=== PATIENT | female | born 1940 | race Caucasian/White ===

== ENCOUNTER 2016-08-13 09:02 | Day surgery (SDC) | payer MEDICARE, OTHER ==
[~2016-08-13] VITALS: Ht 167.6 cm; Wt 71.3 kg
[2016-08-13] VITALS (16 sets, daily range): BP systolic 104–157; BP diastolic 52–75; PULSE 60–91; RESP 12–19; O2SAT 92–100
[2016-08-13] MEDS: Clindamycin Inj 900 MG in IV Premix 1 EACH IV SCH ×2 (06:00→12:11)
[~2016-08-13 09:02] MED LIST: ACET-171 PO; ALBU18HF INH; AMLO5TAB2 PO; ASPI-973 PO; BECL8.7A6 IH; BIOT1000 PO; CHOL100045 PO; DIAZ2TAB2 PO; FURO-129 PO; LEVO100T6 PO; LISI-567 PO; Lactated Ringer's 1,000 ML IV SCH; METO25TA6 PO; OMEP20CA11 PO; OXYB10TA PO; PRAV20TA2 PO
[2016-08-13] MEDS ORDERED: Glycopyrrolate 0.2 MG/ML 1mL Inj ONE (09:03)
[2016-08-13] MEDS ORDERED: fentaNYL-PF 50 mCg/mL 2 mL Inj ONE (09:03)
[2016-08-13] MEDS ORDERED: Ondansetron 2 mg/mL 2 mL Inj ONE (09:03)
[2016-08-13] MEDS ORDERED: Neostigmine 1 mg/mL 10 mL Inj ONE (09:03)
[2016-08-13] MEDS ORDERED: Phenylephrine 10,000 mCg/mL Inj ONE (09:03)
[2016-08-13] MEDS ORDERED: Rocuronium 10 mg/mL 5 mL Inj ONE (09:03)
[2016-08-13] MEDS ORDERED: Dexamethasone 4 mg/mL Inj ONE (09:03)
[2016-08-13] MEDS ORDERED: HYDROmorphone 2 mg/mL Inj ONE (09:03)
[2016-08-13] MEDS ORDERED: Propofol 10,000 mCg/mL 20 mL Inj ONE (09:03)
[2016-08-13] MEDS ORDERED: Lactated Ringer's 1,000 ML IV ONE (09:21)
--- NOTE | 2016-08-13 11:15 | DRSVH ---
PROCEDURE: NM SENTINEL NODE INJECTION ONLY, LEFT BREAST RADIOPHARMACEUTICAL: 0.5 mCi Millipore filtered Tc-99m sulfur colloid. INDICATIONS: RIGHT BREAST CANCER, BILATERAL MASTECTOMY PROCEDURE: The indications, alternatives, benefits, risks, and complications of the procedure were explained to the patient. Written informed consent was obtained and placed in the chart. The area around the nip ple was prepped and draped in a sterile fashion. Tc-99m sulfur colloid was injected in the outer edg e of the areola in the left breast. No image was obtained. IMPRESSION: Administration of radiotracer into the left breast periareolar region for intra-operativ e sentinel lymph node localization. Dictated by: Constantine Valerio M.D. on 08/13/2016 at 11:13 Approved by: Constantine Valerio M.D. on 08/13/2016 at 11:14
--- NOTE | 2016-08-13 11:15 | DRSVH ---
PROCEDURE: NM SENTINEL NODE INJECTION ONLY, RIGHT BREAST RADIOPHARMACEUTICAL: 0.5 mCi Millipore filtered Tc-99m sulfur colloid. INDICATIONS: RIGHT BREAST CANCER PROCEDURE: The indications, alternatives, benefits, risks, and complications of the procedure were explained to the patient. Written informed consent was obtained and placed in the chart. The area around the nip ple was prepped and draped in a sterile fashion. Tc-99m sulfur colloid was injected in the outer edg e of the areola in the right breast. No image was obtained. IMPRESSION: Administration of radiotracer into the right breast periareolar region for intra-operati ve sentinel lymph node localization. Dictated by: Constantine Valerio M.D. on 08/13/2016 at 11:13 Approved by: Constantine Valerio M.D. on 08/13/2016 at 11:13
[2016-08-13] MEDS ORDERED: Bupivacaine 0.5%/EPI 50 mL Inj INFILTRATE ONE (12:48)
[2016-08-13] MEDS ORDERED: Lactated Ringer's 1,000 ML IV SCH (13:03)
[2016-08-13] MEDS ORDERED: Lactated Ringer's 500 ML IV PRN (13:03)
--- NOTE | 2016-08-13 13:03 | PCM.HPANE ---
Patient Data Surgeon Admitting Provider: Attending Provider:Alen Bunn MD Primary Care Physician:Wale Gr DO Other Provider:Aria Morales Anesthesia Reason for Visit Recurrent Right Breast Cancer RECURRENT RIGHT BREAST CANCER Ht/WT & BMI Height (Feet): 5 Height (Inches): 6.00 Weight (Kilograms): 71.3 Body Mass Index 25.00 Allergies Coded Allergies: Iodinated Contrast Media - IV Dye (Verified Allergy, Severe, Hives, 02/01/15 ) cefazolin (Verified Allergy, Severe, 02/01/15) codeine (Verified Allergy, Severe, 02/01/15) metoclopramide (Verified Allergy, Severe, 02/01/15) morphine (Verified Allergy, Severe, 02/01/15) oxycodone (Verified Allergy, Severe, 02/01/15) sulfamethoxazole (Verified Allergy, Severe, 02/01/15) trimethoprim (Verified Allergy, Severe, 02/01/15) Past Anesthesia History Anesthesia History: Denies:: Anesthesia Reactions, Difficult Intubation, Fam Anesthesia Reaction, Fam Malignant Hypertherm, Malignant Hyperthermia Diabetes History Hx Diabetes?: No MRSA MRSA: No Medications Blood Thinner: Aspirin Hypertension Medication: Yes Home Meds Incl Beta Prabha: Yes (Metoprolol 12.5mg) Date Beta Prabha Taken: Aug 13, 2016 Time Beta Prabha Taken: 0700 Reported Medications Metoprolol Tartrate 25 Mg Xleduw15.5 Mg PO BID 30 Days Ref 0 08/12/16 Amlodipine 5 Mg TabletUnknown Dose PO BID PRN For HYPERtension Ref 0 02/01/15 Cholecalciferol (Vitamin D3) (Vitamin D)1,000 Unit Capsule1,000 Unit PO DAILY # 1 BOTTLE Ref 0 12/29/14 Albuterol Sulfate (Ventolin HFA Inhaler)200 Puff/18 Gm Inhaler2 Puff INH Q4 PRN For Wheezing #1 INHALER Ref 0 12/29/14 Beclomethasone Dipropionate (Qvar)8.7 Gm Aer.w.adap2 Puffs IH BID 12/29/14 Pravastatin 20 Mg Laoqax09 Mg PO DAILY Ref 0 12/29/14 Oxybutynin Chloride ER 10 Mg Tab.er.2410 Mg PO DAILY Ref 0 12/29/14 Omeprazole 20 Mg Capsule.dr20 Mg PO DAILY Ref 0 12/29/14 Lisinopril 20 Mg Atldrp40 Mg PO DAILY 30 Days Ref 0 12/29/14 Levothyroxine 100 Mcg Ctkthz921 Mcg PO DAILY For Thyroid Replacement Ref 0 12/29/14 Furosemide (Lasix)20 Mg Vdqmdg29 Mg PO DAILY 30 Days Ref 0 12/29/14 Diazepam 2 Mg Tablet2 Mg PO TID PRN For Anxiety Ref 0 12/29/14 Biotin (Bandar Biotin)10,000 Mcg Capsule5,000 Mcg PO DAILY 12/29/14 Aspirin 81 Mg Yiibrd17 Mg PO DAILY Ref 0 12/29/14 Acetaminophen 500 Mg Tablet1,000 Mg PO Q6H PRN For Fever 12/29/14 Discontinued Reported Medications Prednisone (PredniSONE)50 Mg Avlnyu67 Mg PO DAILY Ref 0 07/26/16 History History of ENT Problems?: No HEENT History: Positive for:: Cataracts (Bilateral cataract removal) Sinus Problem (Sometimes) Denies:: Difficult Intubation Dysphagia Glaucoma Hearing Problem Hx of Heart Problems?: Yes Cardiovascular History: Positive for:: Cardiac Surgery (pacemaker) Edema (Sometimes) Hypertension Irregular Heartbeat (Current 2nd degree AVB) Pacemaker Denies:: AICD Atrial Fibrillation Chest Pain Congestive Heart Failure Heart Murmur Thrombophlebitis Valvular Heart Disease Hx of Respiratory Problem?: Yes Respiratory History: Positive for:: Asthma Pneumonia (remote hx of ) Use of Inhalers / NEBS Denies:: COPD Chest Surgery Cough Dyspnea Emphysema Hemoptysis Oxygen Administration Tuberculosis Use of C-PAP Machine Hx Neurologic Problems?: No Neurological History: Denies:: Alzheimer's Disease CVA Dementia Headaches Parkinson's Disease Seizures Hx of GI Problems?: No Gastrointestinal History: Positive for:: Gastroesphageal Reflux Heartburn (Takes Omeprazole) Denies:: Cirrhosis Diverticulitis Gall Bladder Disease Gastrointestinal Bleeding Hepatitis Hiatal Hernia Rectal Bleeding Other GI Pertinent History: 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 (hx right breast, recurrence current admission problem) Denies:: Currently Pelvic Inflammatory Skin History: Denies:: History Skin Disorders? Pressure Ulcers Hx Musculoskeletal Problems?: No Musculoskeletal History: Positive for:: Back Injury (Low to mid back when standing for long time) Joint Replacement (Partial right knee) Osteoarthritis Denies:: Fibromyalgia Musculoskeletal Trauma Myasthenia Gravis Rheumatoid Arthritis Systemic Lupus Hx of Psycho/Social Problems?: No Psycho Social History: Denies:: Anxiety Bipolar Disorder Hx Depression Suicide Attempt Hx Surgeries?: Yes (BONE MARROW TRANSPLANT, 2 BLADDER SURGERIES) Hx Any Other Health Problems?: Yes Other History: Positive for:: Cancer (leukemia- hx bone marrow, radiation ) Hospitalization Thyroid Disease (Hypothyrodism) Denies:: Endocrine Disease History Blood Transfusions: Positive for:: Accept Blood Products? Blood Transfusions Denies:: Blood Transfuse Reaction Hx Diabetes: No Hx Alcohol Use: NoHx Substance Use: No Smoking Status: Former Smoker Have You Smoked inLast 12 mo: No Stop/Bang S-Snoring: Do You Snore Loudly: No T-Tired: feel tired, fatigued: No O-Obsered: Observed not breath: No P-Blood Pressure: treated: Yes B- Body Mass Index > 35 kg/m2: No A- Age over 50: Yes N- Neck Large Circumference: No G- Gender Male: No SHIV Total Score: 2 Risk Assessment Category Category 1A: Patient has history of documented sleep apnea, and HAS NOT received any narcotic, sedative or anesthesia administration during this stay. Category 1B: Patient has history of documented sleep apnea, and HAS received any narcotic , sedative or anesthesia administration during this stay Category 2: Patient has SUSPECTED Obstructive Sleep Apnea, and HAS received any narcotic , sedative or anesthesia administration during this stay. Category 3: Patient has SUSPECTED Obstructive Sleep Apnea and HAS NOT received narcotic, sedative or anesthesia administration during this stay. Category 4: Outpatient in Procedural Areas with known sleep apnea or who screen positive for High Risk via the STOP/BANG questionnaire. Exam Exam Vital Signs Vital Signs Date Time Temp Pulse Resp B/P Pulse Ox O2 Delivery O2 Flow Rate FiO2 08/13/16 10:04 36.5 60 16 145/52 99 Room Air General Appearance: Alert, Oriented X3, Cooperative, No Acute Distress HEENT/AIRWAY: MP 2, Neck Movement (FROM), Mouth Opening (3 FBMO) Lungs: Clear to Auscultation, Normal Air Movement Heart: Other (pacemaker dependent, pacemaker reprogramed to DOO mode prior to surgery) Meds/Labs/Diagnostics Admission Meds Current Medications Lactated Ringer's (Lr) 1,000 ml @ ud STK-MED ONCE IV Last administered on 08/13t 09:21; Start 08/13/16 at 09:21; Stop 08/13/16 at 09:22; Status DC Plan Impression Patient chart reviewed, patient interviewed and anesthestic plan with risks, benefits, and alternatives discussed, and informed consent obtained. NPO Status: 08/12 at 1900 ASA Physical Status: ASA3 Severe Disease (pacemaker dependent) Anesthetic Plan: GA Bene/Risks/Altern/Consents: Yes HP Complete Prior to Induction: Yes Wale Bryant MD Aug 13, 2016 10:21
[2016-08-13] MEDS ORDERED: hydrALAZINE 20 mg/mL Inj IVPUSH PRN (13:05)
[2016-08-13] MEDS ORDERED: Labetalol 5 mg/mL 4 mL Inj IV PRN (13:05)
[2016-08-13] MEDS ORDERED: Atropine 0.4 mg/mL Inj IVPUSH PRN (13:05)
[2016-08-13] MEDS ORDERED: EPHEDrine Sulfate 50 mg/mL Inj IVPUSH PRN (13:05)
[2016-08-13] MEDS ORDERED: Phenylephrine 10,000 mCg/mL Inj IVPUSH PRN (13:05)
[2016-08-13] MEDS ORDERED: HYDROmorphone 1 mg/mL Inj IVPUSH PRN (13:05)
[2016-08-13] MEDS ORDERED: Ondansetron 2 mg/mL 2 mL Inj IVPUSH PRN ×2 (13:05→14:50)
[2016-08-13] MEDS ORDERED: fentaNYL-PF 50 mCg/mL 2 mL Inj IVPUSH PRN (13:05)
[2016-08-13] MEDS ORDERED: HYDROmorphone 0.5 mg/0.5 mL iSecure Syringe IVPUSH PRN (14:50)
[2016-08-13] MEDS ORDERED: HYDROmorphone PCA 0.2 mg/mL 30 mL Inj IV PRN (14:50)
[2016-08-13] MEDS ORDERED: Acetaminophen IV 1,000 MG in IV Premix 1 EACH IV PRN (14:50)
--- NOTE | 2016-08-13 15:05 | PCM.SURGOP ---
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 She also has a history of total body radiation for CML. She had an abnormal 6 mm density in the right breast on screening mammograms. A biopsy demonstrated moderately differentiated invasive ductal carcinoma, ER/MI positive, HER-2 negative. After discussion of risks and benefits, she agreed to proceed with bilateral mastectomy with bilateral axillary sentinel lymph node biopsy. Findings: On the right side, there was no identifiable sentinel lymph node, so a formal lymph node dissection was performed. On the left, there were 2 sentinel nodes. The first sentinel node had an ex vivo count of 172, the second sentinel node had an ex vivo count of 29, and the background count in the left axilla was 7. Procedure Details Preoperatively, the patient underwent bilateral periareolar radiotracer injection for sentinel lymph node identification. She was then brought to the operating room where she underwent smooth induction of general anesthesia. She was placed in the supine position with both arms out. Assessment of the axilla on both sides with the gamma probe revealed a radiotracer signal, so methylene blue was not used. She was prepped and draped in wide sterile fashion. A procedural pause was performed according to the SCOAP checklist, and all were found to be in agreement. Left simple mastectomy was performed first. An elliptical skin incision was made, encompassing the nipple areolar complex. Skin flaps were raised superiorly and inferiorly. Circumferential dissection was carried out with electrocautery as the skin subcutaneous tissue was elevated off the underlying breast capsule. Margins of dissection were the left clavicle and posterior to her left upper chest wall pacemaker pocket, which was not violated, the midline , the left inframammary crease, and the left anterior axillary line. The left breast was dissected off the underlying chest wall, and pectoralis fascia was resected en bloc. Prior to disconnecting the left axillary tail, a single lymph node was visible. This had a focal radiotracer uptake, so it was dissected free from the surrounding tissue with electrocautery. Ex vivo, it was a single lymph node with a gamma count of 172. The left breast was oriented with suture, and passed off the field for permanent pathology. The left axilla was reevaluated with the gamma probe, and there was a I'll but persistent radiotracer signal. Further dissection in the region of the prior node revealed another lymph node with radiotracer uptake which was dissected free from the surrounding tissues. Ex vivo, its gamma count was 29. Now the background count in the left axilla was 7. Both sentinel lymph nodes were labeled separately, and sent for permanent pathology. Hemostasis was adequate. There was a small amount of redundant skin at the medial aspect of her mastectomy incision, which was excised sharply and sent for pathology. A 19 Azeri round MARYJO drain was brought out through a separate incision laterally, and secured to the skin with a 2-0 nylon stitch. The skin incision was closed with interrupted deep dermal 3-0 Vicryl suture, and a running 4-0 Vicryl subcuticular stitch. Right simple mastectomy was performed next. Her prior upper outer quadrant incision was excised in the skin ellipse, which encompassed the nipple areolar complex as well. Skin flaps were raised superiorly and inferiorly. Circumferential dissection was carried out with electrocautery as the skin and subcutaneous tissue was elevated off the underlying breast capsule. Margins of dissection were the right clavicle, the midline, the right inframammary crease, and the right anterior axillary line. The right breast was dissected off the underlying chest wall, and pectoralis fascia was resected en bloc. Her prior radiated lumpectomy cavity was somewhat adherent to the chest wall, so that area was resected en bloc with a tiny amount of pectoralis muscle. The right axillary tail was disconnected, as there was no radiotracer signal in that area. The right breast was oriented with suture. Evaluation of the right axilla with the gamma probe revealed no radiotracer signal. The right breast was evaluated thoroughly, especially within the right axillary tail, and there was no evidence of a discrete radiotracer focus. There were no palpable lymph nodes within the axillary tail. The right breast was sent for permanent pathology. After a fairly extensive search, it was clear that there was no radiotracer signal in the axilla. A formal right axillary lymph node dissection was performed. The right axillary vein was skeletonized. The right thoracodorsal and long thoracic nerves were identified and preserved. There were some intercostal brachial nerves which were sacrificed during dissection. Once the nerves had been identified, all of the loose areolar node bearing tissue was swept inferiorly out of levels 1 and 2 of the axilla using the LigaSure for dissection. At completion of the dissection, the nerves were intact. The right axillary tissue was again evaluated with the gamma probe, and there was no radiotracer signal. There were no worrisome lymph nodes by palpation. That tissue was sent for permanent pathology labeled as right axillary dissection. Hemostasis was adequate. A 19 Azeri round MARYJO drain was brought out through a separate incision laterally, and secured to the skin with a 2-0 nylon stitch. The skin incision was closed with interrupted deep dermal 3-0 Vicryl suture, and a running 4-0 Vicryl subcuticular stitch. Steri-Strips and sterile dressings were applied to both incisions. At the end of the case all needle and sponge counts were correct 2. The patient was awakened from anesthesia without difficulty, and taken to the recovery room in satisfactory condition, having tolerated the procedure well. Complications There were no periprocedural complications identified. Surgical Specimen Removed: Yes Specimen sent to Pathology: Yes Surgical Specimen description: Left breast. Left axillary sentinel lymph node #1. Left axillary sentinel lymph node #2. Left medial skin. Right breast. Right axillary dissection. Anesthetic Plan: GA Grafts, Implants: None Output, Estimated Blood Loss: 30 Blood Administration during bansal: No Drains: MARYJO Drain #1, MARYJO Drain #2 Catheters: None copies to: Wale Gr DO; Baljit Smtih MD; Cody Holland MD, Joshua D MD Aug 13, 2016 15:04
--- NOTE | 2016-08-13 15:48 | PCM.ANEP1 ---
Post Anesthesia Phase 1 PACU Phase 1 Assessment Date of Service: Aug 13, 2016 Vital Signs Vital Signs Date Time Temp Pulse Resp B/P Pulse Ox O2 Delivery O2 Flow Rate FiO2 08/13/16 15:40 37.2 91 17 116/55 94 Nasal Cannula 3 08/13/16 15:35 91 14 112/56 100 Simple Mask 8 08/13/16 15:25 91 19 135/61 100 Simple Mask 8 08/13/16 15:20 91 18 130/75 99 Simple Mask 8 08/13/16 15:15 91 13 137/63 99 Simple Mask 8 08/13/16 15:10 91 16 147/62 98 Simple Mask 8 08/13/16 15:06 36.2 91 13 157/67 100 Simple Mask 8 08/13/16 10:04 36.5 60 16 145/52 99 Room Air Anesthetic Administered: GA Level of Alertness: Awake, talking CORDOBA's with Equal Strength: Yes Pain: No Nausea or Vomiting: No Oxygen Delivery: Simple Mask Lungs: Clear to Auscultation, Normal Air Movement Dermatome Level: Full Sensation Wale Bryant MD Aug 13, 2016 15:48
--- NOTE | 2016-08-13 15:48 | PCM.ANEP2 ---
Post Anesthesia Evaluation ASA/CMS Post Anesthesia VS in Patient's Normal Range?: Yes Resp Stable; Airway Patent?: Yes CV Function & Hydration Stable: Yes Mental Status Recovered?: Yes Pain control Satisfactory?: Yes N/V Control Satisfactory?: Yes Wale Bryant MD Aug 13, 2016 15:48
[2016-08-13] MEDS ORDERED: Lactated Ringer's 500 ML IV ONE (16:04)
[2016-08-13] MEDS ORDERED: Albuterol 2.5 mg/3 mL Inhalation Solution NEB PRN (17:00)
[2016-08-13] MEDS: Dextrose 5% Lactated Ringer's 1,000 ML IV SCH (17:18)
--- NOTE | 2016-08-13 17:49 | NUR ---
PostOp Pt arrived from PACU to OSC unit, 1014 at 1630. Arrived via gurney, slide board transfer over to bed. A&Ox3, VSS - on 6L oxymask, IV patent at Left Foot, Dressing to bilateral chest CDI, Bilateral JPs with sero-sang output, No c/o pain, Oriented to room and call light. 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 Stating not hungry at time of arrival - at 1730, stating ready to eat, jello and water provided to check for possibility nausea. Personal belongings brought down with pt. Pt comfortable at this time, call light in reach. Care continues.
[2016-08-14 00:10] VITALS: BP 146/72; PULSE 68; RESP 16; O2SAT 99
[2016-08-14 00:16] VITALS: RESP 16; O2SAT 99
--- NOTE | 2016-08-14 02:25 | NUR ---
Activity/Pain Patient up to BR with one person assist using FWW. Gait steady. Denies lightheadedness/dizziness. Complaints of nausea, with no emesis, upon returning to bed. Denies pain currently, but education provided on FEED BLENDER use. States understanding. Keeps rating pain 0-1/10 upon rounding. Using call light appropriately.
[2016-08-14 04:42] VITALS: BP 137/71; PULSE 68; RESP 16; O2SAT 99
[2016-08-14] MEDS: Dextrose 5% Lactated Ringer's 1,000 ML IV SCH (05:36)
[2016-08-14 05:37] VITALS: RESP 16; O2SAT 98
[2016-08-14] MEDS ORDERED: HYDROcodone-APAP 5-325 mg Tablet PO PRN (06:45)
--- NOTE | 2016-08-14 06:48 | PCM.DISURG ---
Surgical Discharge Instruction Date of Service Aug 14, 2016 Dates of Hospitalization Date of Hospital Admission Providers Admitting Physician: Primary Care Physician: Wale Gr DO Attending Physician: lAen Bunn MD Discharge Diagnosis Discharge Diagnosis recurrent right breast cancer Post Operative diagnosis Same Diet Discharge Diet: No restrictions Activity Discharge Activity-General: Activity as pain allows, Other (Gentle range of motion arm exercises per physical therapy) Dressing and Incisional Care Dressing Care: Allow Steri Stripes to fall off Hygiene: May shower Additional Instructions Additional Instructions Empty MARYJO drains and record output daily or more frequently as needed. Call the surgery clinic when output from one drain is less than 30mL in 24 hours for 2 consecutive days, and the drains can be removed at that time. Follow Up Plan Follow Up Plan with Dr. Bunn in 2 weeks. Call your provider for: Fever (over 101.5F), Discharge @ incision, pus discharge Alen Bunn MD Aug 14, 2016 06:47
[2016-08-14] MEDS ORDERED: HYDR-4003 PO (06:49)
--- NOTE | 2016-08-14 07:18 | PROG NOTE ---
[address] [address] PROGRESS NOTE PATIENT: MARK OLIVARES : 1940 MR#: [id number] ADMIT: 08/13/2016 JOB ID: [id number] DATE: 08/14/2016 SUBJECTIVE: The patient is seen in followup. She had a good night. She has very little pain. She had some mild nausea which has resolved this morning. She is voiding without difficulty. OBJECTIVE: Temperature 36.8, pulse 68, blood pressure 137/71, saturation 98% on 2 L oxy mask. General: She is resting in bed in no acute distress. Chest is clear. Heart: Regular rate and rhythm. No murmurs. Breasts: Her mastectomy incisions are well approximated with no evidence of hematoma. Skin flaps are well perfused. MARYJO drains are serosanguineous. LABORATORIES: Hematocrit is 30.8. ASSESSMENT/PLAN: A 76-year-old woman, postoperative day one, status post bilateral mastectomy for recurrent right breast cancer with left axillary sentinel lymph node biopsy and right axillary lymph node dissection. She is doing well clinically. She can be discharged today after MARYJO drain teaching has taken place, as well as some exercise education by physical therapy. She will follow up in surgery clinic when MARYJO drain output is less than 30 cc in 24 hours for drain removal and will see me in two weeks.
[2016-08-14 07:54] VITALS: PULSE 63; RESP 16; O2SAT 97
[2016-08-14 10:43] VITALS: BP 126/73; PULSE 74; RESP 16; O2SAT 93
--- NOTE | 2016-08-14 11:35 | NUR ---
Discharge Pt d/c'd home at approx 1130. IV removed intact. Reviewed d/c instructions w/ patient and her daughter. Showed daughter how to thread and drain MARYJO drain and she demonstrated on the 2nd drain. Hard copy of RX and all belongings w/ patient. She was taken to her daughter's POV via w/c. VSS
--- NOTE | 2016-08-14 12:45 | NUR ---
Social Work-screening/discharge: Data:EMR Reviewed. SW attempted to see pt for assessment, but was updated that pt has been discharged. PT has cleared pt for home no needs. no discharge needs identified. All updated and agreeable to plan. Assessment:Pt who is independent at baseline. Plan:Pt to discharge home today via POV.no discharge needs identified. All updated and agreeable to plan. [facility] [employer]
--- NOTE | 2016-08-14 14:51 | PCM.DC.SUR ---
Discharge Summary Date of Service: Aug 14, 2016 Date of Hospital Admission: August 13, 2016 Date of Operation(s): August 13, 2016 Date of Discharge: Aug 14, 2016 at 11:31 Diagnosis at Time of Discharge Primary Diagnosis: Recurrent right breast cancer Secondary diagnosis: HTN Dyslipidemia Pre-diabetes Anemia Hx Smoking Hypothyroidism Sick Sinus Syndrome S/P Pacemaker implantation Mass of the colon Benign positional vertigo Constipation Hypercalcemia Problems: Operation Bilateral simple mastectomy, left axillary sentinel lymph node biopsy, right axillary lymph node dissection Brief History and Physical: 76-year-old woman with a history of 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 She also has a history of total body radiation for CML. She had an abnormal 6 mm density in the right breast on screening mammograms. A biopsy demonstrated moderately differentiated invasive ductal carcinoma, ER/OK positive, HER-2 negative. After discussion of risks and benefits, she agreed to proceed with bilateral mastectomy with bilateral axillary sentinel lymph node biopsy. Consultants: NONE Hospital Course: Progress note per Dr. Zuniga's SUBJECTIVE: The patient is seen in followup. She had a good night. She has very little pain. She had some mild nausea which has resolved this morning. She is voiding without difficulty. OBJECTIVE: Temperature 36.8, pulse 68, blood pressure 137/71, saturation 98% on 2 L oxy mask. General: She is resting in bed in no acute distress. Chest is clear. Heart: Regular rate and rhythm. No murmurs. Breasts: Her mastectomy incisions are well approximated with no evidence of hematoma. Skin flaps are well perfused. MARYJO drains are serosanguineous. LABORATORIES: Hematocrit is 30.8. ASSESSMENT/PLAN: A 76-year-old woman, postoperative day one, status post bilateral mastectomy for recurrent right breast cancer with left axillary sentinel lymph node biopsy and right axillary lymph node dissection. She is doing well clinically. She can be discharged today after MARYJO drain teaching has taken place, as well as some exercise education by physical therapy. She will follow up in surgery clinic when MARYJO drain output is less than 30 cc in 24 hours for drain removal and will see me in two weeks. Pathology: Pending Disposition: Home Follow-up Plan: Dr. Bunn 2 weeks Acetaminophen (Acetaminophen) 500 Mg Tablet 1,000 MG PO Q6H PRN PRN For Fever ( Reported) Albuterol Sulfate (Ventolin HFA Inhaler) 200 Puff/18 Gm Inhaler 2 PUFF INH Q4 PRN PRN For Wheezing (Reported) Amlodipine (Amlodipine) 5 Mg Tablet Unknown Dose PO BID PRN PRN For HYPERtension (Reported) Aspirin (Aspirin) 81 Mg Tablet 81 MG PO DAILY (Reported) Beclomethasone Dipropionate (Qvar) 8.7 Gm Aer.w.adap 2 PUFFS IH BID (Reported) Biotin (Bandar Biotin) 10,000 Mcg Capsule 5,000 MCG PO DAILY (Reported) Cholecalciferol (Vitamin D3) (Vitamin D) 1,000 Unit Capsule 1,000 UNIT PO DAILY (Reported) Diazepam (Diazepam) 2 Mg Tablet 2 MG PO TID PRN PRN For Anxiety (Reported) Furosemide (Lasix) 20 Mg Tablet 10 MG PO DAILY (Reported) Hydrocodone-Acetaminophen 5-325 mg (Hydrocodone-Acetaminophen 5-325 mg) 1 Each Tablet 1 TABLET PO Q6 PRN PRN For Mild Pain Levothyroxine (Levothyroxine) 100 Mcg Tablet 100 MCG PO DAILY (Reported) Lisinopril (Lisinopril) 20 Mg Tablet 20 MG PO DAILY (Reported) Metoprolol Tartrate (Metoprolol Tartrate) 25 Mg Tablet 12.5 MG PO BID (Reported ) Omeprazole (Omeprazole) 20 Mg Capsule.dr 20 MG PO DAILY (Reported) Oxybutynin Chloride ER (Oxybutynin Chloride ER) 10 Mg Tab.er.24 10 MG PO DAILY ( Reported) Pravastatin (Pravastatin) 20 Mg Tablet 20 MG PO DAILY (Reported) copies to: Wale Gr DO; Baljit Smith MD; Cody Holland MD, Sherri L PA-C Aug 14, 2016 14:51
--- NOTE | 2016-08-16 16:13 | PATH ---
SURGICAL PATHOLOGY Attending Physician:Dalton Adorno CASE STATUS: Signed Out PATIENT NAME: MARK OLIVARES PID: [id number] : 1940 DATE COLLECTED:08/13/2016 00:00 SPECIMEN: 1: Breast, Simple Mastectomy (lymph nodes submitted separately) 2: [place] Lymph Node 3: [place] Lymph Node 4: Skin, biopsy 5: Breast, Simple Mastectomy (lymph nodes submitted separately) 6: Lymph Nodes, Regional Resection CLINICAL HISTORY: RECURRENT RIGHT BREAST CANCER 1). LEFT BREAST, SHORT SUPERIOR, LONG LATERAL, OUT @ 13:01 FIXATIVE @ 14:52 2). LEFT AXILLARY SENTINEL LYMPH NODE #1 OUT @ 13:17 FIXATIVE @ 13:19 3). LEFT AXILLARY SENTINEL LYMPH NODE #2 OUT @ 13:18 FIXATIVE @ 13:19 4). LEFT MEDIAL SKIN 5). RIGHT BREAST, SHORT SUPERIOR, LONG LATERAL, OUT @ 13:51 FIXATIVE @ 1452 6). RIGHT AXILLARY DISSECTION OUT @ 14:23 FIXATIVE @ 14:34 FINAL DIAGNOSIS: 1.LEFT SIMPLE MASTECTOMY SPECIMEN: NEGATIVE FOR MALIGNANCY AND SIGNIFICANT ATYPIA. 2. 3. LEFT SENTINEL LYMPH NODE #1 AND #2: BOTH LYMPH NODES NEGATIVE FOR MALIGNANCY. 4.LEFT MEDIAL SKIN: NEGATIVE FOR MALIGNANCY AND SIGNIFICANT ATYPIA. 5.RIGHT BREAST SIMPLE MASTECTOMY SPECIMEN: INVASIVE CARCINOMA OF THE BREAST, SEE CAP CANCER CASE SUMMARY BELOW. CAP CANCER CASE SUMMARY INVASIVE CARCINOMA OF THE BREAST: PROCEDURE: SIMPLE MASTECTOMY LYMPH NODE SAMPLING: AXILLARY DISSECTION (SEE PART 6) SPECIMEN LATERALITY: RIGHT TUMOR SITE: MEDIAL ASPECT TUMOR SIZE: LARGEST FOCUS 1.6 X 1.2 X 0.7 CM HISTOLOGIC TYPE: INFILTRATING DUCTAL CARCINOMA HISTOLOGIC GRADE: NITZA HISTOLOGIC SCORE 5 OF 9 Glandular/Tubular differentiation: Score 2 OF 3 Nuclear Pleomorphism: Score 2 OF 3 Mitotic Rate: Score 1 OF 3 Overall Grade: Grade 1 OF 3 (LOW GRADE) TUMOR FOCALITY: TWO SEPARATE FOCI DUCTAL CARCINOMA IN SITU: SEVERAL FOCI PRESENT Size (Extent) of DCIS: LARGEST FOCUS MEASURES 0.4 CM Architectural patterns: SOLID Nuclear grade: Grade INTERMEDIATE (2 OF 3) Necrosis: ABSENT MACROSCOPIC AND MICROSCOPIC EXTENT OF TUMOR SKIN: NEGATIVE FOR TUMOR NIPPLE: NEGATIVE FOR TUMOR SKELETAL MUSCLE: ABSENT MARGINS INVASIVE CARCINOMA: ALL MARGINS GREATER THAN 1.0 CM DUCTAL CARCINOMA IN SITU: ALL MARGINS GREATER THAN 1.0 CM LYMPH NODES Total number of lymph nodes examined: 9 (see part 6) Number of sentinel lymph nodes examined: 0 Lymph Node Involvement: ALL LYMPH NODES NEGATIVE FOR MALIGNANCY LYMPH-VASCULAR INVASION: NOT IDENTIFIED PATHOLOGIC STAGING: AJCC, 7th ed., 2010 PRIMARY TUMOR: pT1c REGIONAL LYMPH NODES: pN0 ANCILLARY STUDIES: Biomarkers Performed Previously on Case: Estrogen Receptor (ER) Status: POSITIVE Progesterone Receptor (PgR) Status: POSITIVE HER2 (by immunohistochemistry): NEGATIVE 6.RIGHT AXILLARY DISSECTION NINE LYMPH NODES, NEGATIVE FOR MALIGNANCY. ICD10 code C50.911 GROSS DESCRIPTION: The specimens are received in formalin, labeled with the patient's name, and sublabeled as the following: (1) left breast, short superior, long lateral; (2) left axillary sentinel lymph node #1; (3) left axillary sentinel lymph node #2; (4) left medial skin; (5) right breast, short superior, long lateral; (6) right axillary dissection. (1) The specimen consists of a left breast (3.6 cm AP, 14.2 cm SI, 19.2 cm ML) partially covered by an ellipse of skin (6.5 cm SI, 18.9 cm ML) with nipple/areola complex (2.7 x 2.7 cm). The axillary tail is absent. The specimen is oriented with 2 black sutures (short-superior, long-lateral). No localization wire is present. The breast tissue is fatty with no nodules, masses or lesions identified. The skin and nipple/areola complex are bay-white and unremarkable. Ink code: purple-anterior; yellow-posterior; black-superior; orange-inferior; green-medial; blue-lateral. Section code: (1A) nipple; (1B) skin; (1C, 1D) upper outer quadrant; (1E, 1F) lower outer quadrant; (1G, 1H) upper inner quadrant; (1I, 1J) lower inner quadrant. (2) The specimen consists of a lymph node (1.5 x 0.8 by 0.4 cm). Section code: (2A) one lymph node, serially sectioned. Specimen entirely submitted. (3) The specimen consists of a lymph node (1.2 x 0.8 x 0.5 cm). Section code: (3A) one lymph node, serially sectioned. Specimen entirely submitted. (4) The specimen consists of a piece of skin with subcutaneous tissue (5.2 x 3.0 x 0.5 cm). The skin is pale white smooth and shiny. The subcutaneous tissue is fatty and unremarkable. Ink code: black-resection margin. Section code: (4A) skin, serially sectioned, phlebotomy services representative. (5) The specimen consists of a right breast (4.3 cm AP, 18.7 cm SI, 17.0 cm ML) partially covered by an ellipse of skin (8.0 cm in SI, 17.0 cm ML) with nipple/areola complex (4.5 x 3.3 cm). The axillary tail is absent. The specimen is oriented with 2 black sutures (short-superior, long-lateral). No localization wire is present. The breast tissue is serially sectioned ML into 41 slices at the medial and lateral resection margins and slices #1 and #41 respectively. The breast tissue is fatty and contains 2 holland white solid firm irregular masses. Mass #1 (1.6 x 1.2 x 0.7 cm) within slices #11-#13 is 3.2 cm on the skin surface, 1.5 cm from the posterior, 11.8 cm from the superior, 0.7 cm from the inferior, 4.8 cm from the medial, and 10.7 cm on the lateral resection margins. Mass #2 (3.2 x 2.5 x 1.8 cm) within slices #13-#18 days 4.5 cm superior to mass #1, 1.7 cm on the skin surface, 0.1 cm from the posterior, 6.5 cm from the superior, 7.5 cm on the inferior, 5.5 cm on the medial, and 8.6 cm from the lateral resection margins. Slices #15-#17 contain a third possible mass (1.2 x 0.5 x 0.4 cm). No other nodules, masses or lesions are identified. The skin and nipple/areola complex are bay-white and slightly puckered which coincides of the underlying mass. Ink code: purple-anterior; yellow-posterior; black-superior; orange-inferior; green-medial; blue-lateral. Section code: (5A) nipple; (5B) skin; (5C) slice #10, tissue adjacent to mass #1, phlebotomy services representative; (5D) slice #11, mass #1, phlebotomy services representative; (5E) slice #12, mass #1, phlebotomy services representative; (5F-5H) slice #13, mass #1 and #2, phlebotomy services representative trisected and submitted IS; (5I-5J) slice #14, mass #2, phlebotomy services representative submitted AP; (5K) slice #15, mass #2, phlebotomy services representative; (5L) slice #15, phlebotomy services representative; (5M) slice #16, mass #2, phlebotomy services representative; (5N) slice #16, phlebotomy services representative; (5O) slice #17, mass #2, phlebotomy services representative; (5P) slice #18, mass #2, phlebotomy services representative; (5Q) slice #18, phlebotomy services representative; (5R) slice #19, tissue adjacent to mass #2, phlebotomy services representative. (6) The specimen consists of a piece of adipose tissue (10.5 x 8.5 x 1.5 cm) contain multiple possible lymph nodes (0.5 x 0.5 x 0.2 cm-1.2 x 1.0 x 0.5 cm). Section code: (6A, 6B) multiple intact lymph nodes; (6C-6E) one lymph node in each, bisected. Note: Approximate total fixation time in formalin-53 hours and 30 minutes using a collection date of August 13 2016 with times in fixative of 2565-5161. 08/15/16 JM MICRO DESCRIPTION: Sections from part 1 are of a simple mastectomy specimen from the left side. This is benign breast tissue with no evidence of malignancy or atypia. Sections from parts 2 and 3 are of left axillary lymph nodes labeled 1 and 2. Both are negative for malignancy. Sections from part 4 are of skin from the left medial aspect which is negative for tumor. Sections from part 5 are from a right simple mastectomy specimen within which there are two separate masses. Mass #1 measures 1.6 x 1.2 x 0.7 cm and is an infiltrating ductal carcinoma. The tumor is of intermediate nuclear grade with a low mitotic rate and intermediate tubular differentiation. This equates to a score of 5 out of 9 which equates to a low-grade tumor, grade 1 out of 3. There are foci of DCIS present which is of intermediate nuclear grade. The DCIS is of the solid type, and the largest focus measures 0.4 cm. All of the resection margins are widely free of both invasive carcinoma and DCIS. Also within part 5 was a second larger mass measuring 3.2 x 2.5 x 1.8 cm. The bulk of this mass is dense fibrous scar; however, there are areas of residual infiltrating duct carcinoma, the histologic pattern of which is essentially identical to mass #1. The largest area of infiltration here is 1.0 cm. Although the mass was grossly described being close to the posterior margin, this area is fibrous scar. The actual infiltrating ductal carcinoma has margins greater than 1.0 cm. Because the histologic appearance between mass #1 and mass #2 are essentially identical, they are considered to be two foci of the same tumor. Sections from part 6 consist of 9 separate lymph nodes, all of which are negative for malignancy. ICD-9 CODES: CPT CODES: 1: 75332 2: 05637 3: 94023 4: 75869 5: 22332 6: 24878 PROCEDURE/ADDENDA: Addendum SPI Addendum Diagnosis Test: Oncotype DX Breast Recurrence Score Recurrence score result 19 ER Score 9.7 Positive [place] Score 7.6 Positive HER2 Score 9.4 Negative Addendum Comment Please see [employer] report [id number] for complete details. Testing and interpretation done by [employer], [place], [place]. Testing requested by Dr. Holland, [facility]. Electronically Signed Out Chuck Vincent MD Electronically Signed Out Chuck Vincent MD [facility] [address], [place] [address] Technical component performed at [facility], [facility] [address], [place], [address]
== END 2016-08-14 11:31 | disposition home or self-care (01) ==
LOC: SAS 09:02 → OSC 16:50 → SAS 08-14 11:31
PROVIDERS: ATTEND Student in an Organized Health Care Education/Training Program
DX: C50.311 Malignant neoplasm of lower-inner quadrant of right female breast (principal); I10 Essential (primary) hypertension; I49.5 Sick sinus syndrome; E78.5 Hyperlipidemia, unspecified; H81.10 Benign paroxysmal vertigo, unspecified ear; E03.9 Hypothyroidism, unspecified; E83.52 Hypercalcemia; J45.909 Unspecified asthma, uncomplicated; K21.9 Gastro-esophageal reflux disease without esophagitis; Z87.891 Personal history of nicotine dependence; Z95.0 Presence of cardiac pacemaker; Z17.0 Estrogen receptor positive status [ER+]; Z92.3 Personal history of irradiation; Z79.82 Long term (current) use of aspirin
CPT/HCPCS: 19303; 36415; 38525; 38792; 80048; 85014; 88305; 88307; 94799; 97110; A9541; J1100; J1170; J2370; J2405; J2710; J3010; J7120

== ENCOUNTER 2017-01-02 18:09 | Inpatient (IN) | payer MEDICARE, OTHER ==
[~2017-01-02] VITALS: Ht 167.6 cm; Wt 64.9 kg
[~2017-01-02 18:09] MED LIST changes: +HYDR-4003 PO; -Lactated Ringer's 1,000 ML IV SCH
[2017-01-02] MEDS ORDERED: Ondansetron 2 mg/mL 2 mL Inj IVPUSH PRN (18:20)
[2017-01-02 18:24] VITALS: BP 134/77; PULSE 60; RESP 19; O2SAT 99
[2017-01-02] MEDS ORDERED: Piperacillin-Tazo 3.375 Gm Inj 3.375 GM in Dextrose 5% Minibag Plus 50 ML IV ONE (18:35)
[2017-01-02 18:51] LABS: BASOPHILS % (AUTO) 0.3 % (0-3); EOSINOPHILS % (AUTO) 3.7 % (0-5); MONOCYTES % (AUTO) 12.6 % (4-12); Mean Corpuscular Hemoglobin 31.5 pg (27.0-35.0); Mean Corpuscular Volume 92.9 fL (81-100); NEUTROPHILS % (AUTO) 63.1 % (40-74); Platelet Count 202 bil/L (150-400)
--- NOTE | 2017-01-02 18:57 | NUR ---
Pt. to floor Pt. escorted by wheelchair from ER waiting room to osc room 1025. She is steady on her feet, up to the bathroom, and denies complaints other than diarrhea and chronic urinary incontinence. Pt. oriented to room, call guerrero and fall precautions. Socks provided and IV placed in R foot as pt. states she has been instructed not to have arm bp's or iv's post double mastectomy. Foot IV is verified with Dr. Cormier as appropriate prior to placement.
[2017-01-02 19:15] LABS: Magnesium 1.7 mg/dL (1.6-2.6)
[2017-01-02] MEDS ORDERED: 0.9% Sodium Chloride 1,000 ML IV ONE (20:10)
--- NOTE | 2017-01-02 21:52 | PCM.HPMED ---
Subjective Date of Service Jan 02, 2017 Primary Provider: Admitting Physician: Zari Cormier MD Primary Care Physician: Mikal Suarez DO Attending Physician: Zari Cormier MD Chief Complaint: Right upper quadrant pain, nausea and diarrhea History of Present Illness: 76-year-old woman with hypertension, breast cancer status post bilateral mastectomy, chronic renal disease, CML, sick sinus syndrome status post pacemaker placement, was a direct admit to the hospital after presenting with evolving symptoms that eventually maximize in the right upper quadrant. She reports being in [place] last week and eating seafood last Friday, 6 days ago which resulted in her having nausea vomiting diarrhea, she was discharged from the emergency department in [place]. Friday she began to develop which he describes as a pressure in her right chest that descended into her abdomen and eventually wrapped around to her right back. She has not had much to eat but still gets the sensation that she has to defecate. She was seen at the residency clinic today for 7 out of 10 right upper abdominal pain, she was sent for ultrasound and labs which showed an 8 mm thick gallbladder wall and a 1.6 impacted stone in the gallbladder neck. She was started on Zosyn, and IV fluids. She denies any fever, chills, lightheadedness or dizziness, no current chest pain or palpitations, no numbness weakness tingling in arms hands feet or legs, no headaches or abrupt changes in vision. Vitals are stable on admission, white blood cells 11.9, BUN 46 creatinine 2.81 ( 1.16 two months ago), glucose 100, procalcitonin 0.26, liver enzymes are normal , magnesium 1.7. She is admitted for acute cholecystitis with cholelithiasis. Review of Systems: A comprehensive review of systems was conducted with the patient and found to be negative except as above in the history of presenting illness. Allergies Coded Allergies: Iodinated Contrast- Oral and IV Dye (Verified Allergy, Severe, Hives, ) sulfamethoxazole (Verified Allergy, Severe, 02/01/15) trimethoprim (Verified Allergy, Severe, 02/01/15) cefazolin (Verified Adverse Reaction, Severe, 08/14/16) VOMITING codeine (Verified Adverse Reaction, Severe, 08/14/16) VOMITING metoclopramide (Verified Adverse Reaction, Severe, 08/14/16) "WIRED" morphine (Verified Adverse Reaction, Severe, 08/14/16) VOMITING oxycodone (Verified Adverse Reaction, Severe, 08/14/16) VOMITING Home Medications TylerChriskaityautumn Alicia [id number] 1940 01/02/2017 02:20 PM 1/7 02/26/2012 acetaminophen 500 mg tablet take 2 tablet (1000MG) by oral route every 6 hours as needed 09/29/2016 amlodipine 5 mg tablet take 1 tablet by oral route every bedtime Aspir-81 81 mg tablet,delayed release take 1 tablet by oral route every day at night 02/26/2012 biotin 2,500 mcg tablet take 2 daily 11/17/2014 diazepam 2 mg tablet take 1 tablet (2MG) by oral route once daily as needed for anxiety. 12/15/2016 FUROSEMIDE 20 MG TABLET TAKE ONE-HALF TABLET BY MOUTH DAILY 10/29/2016 LEVOTHYROXINE 100 MCG TABLET TAKE ONE TABLET BY MOUTH DAILY FOR THYROID 03/11/2016 lisinopril 20 mg tablet take 1 tablet by oral route twice daily for high blood pressure. 08/12/2016 metoprolol tartrate 25 mg tablet take 0.5 tablet by oral route 2 times every day 02/26/2012 omeprazole 20 mg capsule,delayed release take 1 capsule (20MG) by oral route every day before a meal 06/12/2016 oxybutynin chloride ER 10 mg tablet,extended release 24 hr TAKE ONE TABLET BY MOUTH DAILY FOR BLADDER 09/02/2016 pravastatin 20 mg tablet TAKE 1 TABLET BY MOUTH EVERY EVENING 10/18/2015 prednisone 50 mg tablet take 1 tablet by oral route 13, 7, and 1 hour prior to receiving contrast at time of study 03/24/2014 QVAR 80 MCG ORAL INHALER INHALE 2 PUFFS BY MOUTH TWICE DAILY 04/29/2016 Ventolin HFA 90 mcg/actuation aerosol inhaler INHALE 2 PUFFS BY MOUTH EVERY 4 TO 6 HOURS NEEDED VITAMIN D3 PMH Anemia, arthritis, asthma, basal cell carcinoma of the eyelid, breast cancer recurrent, cataract, CML, dermatochalasis/ptosis, heart murmur, hyperlipidemia, hypertension, liver mass, myopia and a stigmatism, prediabetes, vertigo, chronic renal disease, sick sinus syndrome Surgical History Hysterectomy, knee replacement, pacemaker, most surgery, simple mastectomy, bone marrow transplant with whole-body radiation, blepharoplasty, bilateral mastectomy. Family History Mother: Alive 97 years old unknown medical problems. Father: Passed at the age of 68 secondary to pancreatic cancer. Sister from COPD at age of 66 Social History Hx Alcohol Use: No Hx Substance Use: No Smoking Status: Former Smoker Exam Vital Signs Vital Sign - Last Date Time Temp Pulse Resp B/P Pulse Ox O2 Delivery O2 Flow Rate FiO2 01/02/17 18:24 36.8 60 19 134/77 99 Room Air Exam General: Laying in bed, no apparent distress. HEENT: Normocephalic, atraumatic, EOMI grossly, neck is supple without lymphadenopathy, mucous membranes moist, conjunctivae are pink. Cardiovascular: Heart sounds are distant unable to appreciate murmur clicks or rubs, peripheral pulses 2/4 upper and lower extremities equal bilaterally. Pulmonary: Clear to auscultation bilaterally, no W/R/R. Abdominal: Abdomen is tender, greatest in right upper quadrant, negative rebound. Wills sign positive. Extremities: No edema appreciated. No tenderness, asymmetry. Neuro: Neurologically grossly intact, strength is equal bilaterally upper and lower extremities. MSK: Gait is normal, able to move extremities on their own volition, strength 5 out of 5 equal bilaterally to upper and lower extremities. Psych: A and O 4, appropriate mood and affect. Lab and Diagnostics Result Diagram: 01/02/17184401/02/171844 X-Rays, CTs and MRIs Abdominal ultrasound performed 01/02/2017 IMPRESSION: Acute cholecystitis appears present given the abnormal gallbladder wall thickening up to almost 8 mm, and pronounced tenderness during sonographic palpation of the gallbladder. Stones are present within the gallbladder lumen, and a calculus appears impacted at the gallbladder neck as noted above. Dictated by: Constantine Valerio M.D. 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 Acute cholecystitis with cholelithiasis, present on admission, active Positive Wills's, 8 mm gallbladder wall, 1.6 cm gallstone impacted seen on ultrasound. Pro-calcitonin 0.26 Zosyn every 12 hours IV IV fluids see below Surgery consulting, See Dr. Henderson's 01/02/17 note. Nothing by mouth after midnight except medications Acute on chronic kidney injury, present on admission, active Creatinine is nearly double what it was 2 months ago, patient says she has not been eating or drinking much the past few days, most likely prerenal in nature given the BUN to creatinine ratio. IV bolus 1 L now, 100 mL per hour normal saline to follow Patient only has a peripheral foot IV as a consequence of her bilateral mastectomies. Recheck with a.m. labs Acute diarrhea, present on admission, active Stool C. difficile toxin, ova and parasites, TSH ordered by primary care physician earlier today. Continue to monitor, IV fluids. Chronic stable problems Hyperlipidemia continue pravastatin Hypertension continue amlodipine, metoprolol, lisinopril Hypothyroidism continue levothyroxine Asthma continue Ventolin and Qvar when necessary for shortness of breath. Medication reconciliation yet to be performed. Patient admitted to inpatient status, anticipate a length of stay greater than 2 midnights, based on diagnosis, treatment, and anticipated risk of adverse events. CODE STATUS: Full code. Patient states she has a living will saying resuscitation okay to be performed, does not want to be placed on life support. GI prophylaxis not indicated, nothing by mouth after midnight Pain management: Numerous allergies including codeine, oxycodone. Tylenol as needed. DVT prophylaxis SCDs VTE Mechanical Devices: Intermittant Pneumatic CD Attending Statement The patient was seen and examined together with Dr. Tilley on 01/02 and I agree with the history, exam and plan as outlined in the note above. Sj Cota DO Jan 02, 2017 21:52 Anurag Earl MD Jan 02, 2017 22:48
--- NOTE | 2017-01-02 21:57 | CONS ---
[address] [address] CONSULTATION REPORT PATIENT: MARK OLIVARES : 1940 MR#: [id number] ADMIT: 01/02/2017 JOB ID: [id number] DATE OF SERVICE: 01/02/2017 REQUESTED BY: Zari Cormier MD HISTORY OF PRESENT ILLNESS: Mark is a 76-year-old woman whom I was asked to see for abdominal pain and cholecystitis. Four days ago, she was in [place]. She developed abdominal pain. She returned to her home in [place]. She felt nauseated but never vomited. The pain was in the epigastrium and went into her back. It persisted. She had an ultrasound done today. This demonstrated a thickened gallbladder wall containing stones. There was no adjacent pericholecystic fluid, but there was a positive sonographic Wills's sign. There appeared to be a 1.6 cm stone at the gallbladder neck. Her bile ducts were normal. She was admitted, and I was asked to see her in consultation. She has never had similar symptoms. She has no history of jaundice, acholic stools, or dark urine or pancreatitis. Her laboratory results this evening show a white count of 11,900, hematocrit of 35.4 and a platelet count of 202,000. Her liver function tests are normal. Lipase has not been ordered. Her creatinine is 2.8. She has had a previous eventual SANTY-BSO. She has also had two bladder operations. As far she knows, her appendix has not been removed. In 1986, she had a bone marrow transplant for CML. She had whksp-cevwxn-fmlv disease for eight years and then it resolved. PAST MEDICAL HISTORY: ILLNESSES: 1. CML treated with bone marrow transplant. 2. Ksixo-igtzzf-tuye for eight years following her bone marrow transplant. 3. Breast cancer with ultimate recurrence and ultimately treated with bilateral mastectomies. 4. Uterine fibroids. 5. Urinary incontinence status post Bczvvrey-Ijuichido-Gcvvij. 6. Hypertension. 7. Asthma. 8. Hyperlipidemia. MEDICATIONS AT HOME: 1. Albuterol inhaler. 2. Amlodipine 5 mg b.i.d. 3. Lisinopril 20 mg daily. 4. Metoprolol 12.5 mg b.i.d. 5. Pravastatin 20 mg daily. 6. Sudafed p.r.n. 7. Aspirin 81 mg daily. 8. Diazepam 2 mg t.i.d. p.r.n. 9. Hydrocodone acetaminophen 1 p.o. q.6 p.r.n. 10. Furosemide 10 mg daily. 11. Qvar 2 puffs b.i.d. 12. Omeprazole 20 mg daily. 13. L-thyroxine 100 mcg daily. 14. Oxybutynin 10 mg daily. 15. Biotin. 16. Cholecalciferol. ALLERGIES: 1. IODINATED CONTRAST. 2. ORAL AND IV DYE. 3. CEFAZOLIN. 4. CODEINE. 5. METOCLOPRAMIDE. 6. MORPHINE. 7. OXYCODONE. 8. SULFA METHOXAZOLE. 9. TRIMETHOPRIM. HABITS: Former smoker. Alcohol: Rare. SOCIAL HISTORY: . last fall from Alzheimer disease. FAMILY HISTORY: Negative for gallstones. REVIEW OF SYSTEMS: Otherwise negative. States pain is about the same as it has been for the last couple of days. PHYSICAL EXAMINATION: Very pleasant, alert, no distress. BMI 23, temperature 36.8, brachial blood pressure 134/75, pulse 60, respiratory rate 19, O2 sat in room air 99%. HEENT: PERRLA, EOMI. No scleral icterus. Neck: No appreciable masses. Lungs: Clear. Cardiac exam: Regular rhythm. Breasts: Status post bilateral mastectomy. Abdomen: Soft, but does complain of right upper quadrant tenderness but has no guarding and a negative Wills sign on physical exam. Skin: Nonjaundiced. No anterior abdominal wall rashes. Neurologic exam: Appropriate affect. No obvious cranial nerve deficits. Moves all extremities. Gait not tested. IMPRESSION: Cholecystitis. I discussed the natural history of her disease. I have recommended that if her pain persists which it most likely will, to proceed with a laparoscopic cholecystectomy and cholangiograms tomorrow. I discussed potential complications including but not limited to, bleeding, infection, hernia, bile leak and bile ductal injury. I informed her that members of my team will be seeing her tomorrow.
[2017-01-02] MEDS ORDERED: FUR20 PO (22:26)
[2017-01-02] MEDS ORDERED: OMEP20CA11 PO (22:26)
[2017-01-02] MEDS ORDERED: OXYB10TA PO (22:26)
[2017-01-02] MEDS ORDERED: AMLO5TAB2 PO (22:26)
[2017-01-02] MEDS ORDERED: ESTR0.3T2 PO (22:26)
[2017-01-02] MEDS ORDERED: METO25TA6 PO (22:26)
[2017-01-02] MEDS ORDERED: ACET500C49 PO (22:26)
[2017-01-02] MEDS ORDERED: PRAV20TA2 PO (22:26)
[2017-01-02] MEDS ORDERED: ASPI-973 PO (22:26)
[2017-01-02] MEDS ORDERED: BIOT5000 PO (22:26)
[2017-01-02] MEDS ORDERED: LISI-567 PO (22:26)
[2017-01-02] MEDS ORDERED: LEVO100T6 PO (22:26)
[2017-01-02] MEDS ORDERED: Albuterol 2.5 mg/3 mL Inhalation Solution NEB PRN (22:35)
[2017-01-02] MEDS ORDERED: HYDROcodone-APAP 5-325 mg Tablet PO PRN (23:00)
[2017-01-03] VITALS (15 sets, daily range): BP systolic 103–158; BP diastolic 47–80; PULSE 60–77; RESP 16–20; O2SAT 95–100
[2017-01-03] MEDS: 0.9% Sodium Chloride 1,000 ML IV SCH ×3 (00:22→15:50)
--- NOTE | 2017-01-03 03:14 | NUR ---
Bolus Patient tolerated inital dose of ABX with no noted SE. Received 1000L Bolus of NS also tolerated well. Denies intolerable pain. Able to utilize BSC, precautionary measure to protect IV site. Bed in low position, call light within reach, intentional rounding. Care Continues.
[2017-01-03 06:38] LABS: BASOPHILS % (AUTO) 0.5 % (0-3); EOSINOPHILS % (AUTO) 6.7 % (0-5); MONOCYTES % (AUTO) 10.4 % (4-12); Mean Corpuscular Hemoglobin 31.1 pg (27.0-35.0); Mean Corpuscular Volume 92.1 fL (81-100); NEUTROPHILS % (AUTO) 64.2 % (40-74); Platelet Count 174 bil/L (150-400)
[2017-01-03] MEDS: Pantoprazole 40 mg ER24 Tablet PO SCH (06:41)
[2017-01-03 06:58] LABS: Magnesium 1.6 mg/dL (1.6-2.6)
--- NOTE | 2017-01-03 07:33 | PCM.PNSURG ---
Subjective Date of Service: Jan 03, 2017 Visit Information: Reason for Visit Acute Cholecystitis Surgery/Surgery Date Post-Op Day # Date of Admission: Jan 02, 2017 at 18:09 Hospital Day # Subjective: Patient is resting comfortably in bed, she denies nausea, vomiting, fevers, sweats, chills. Postop General: No Complaints Gastrointestinal: No N/V Objective Objective Patient's abdomen is diffusely tender, soft, nondistended. White count has come down from 11.9-8.6 today. Patient is afebrile and vital signs are stable. Vital Sign- Last 8 Hours Date Time Temp Pulse Resp B/P Pulse Ox O2 Delivery O2 Flow Rate FiO2 01/03/17 05:08 77 01/03/17 04:45 36.5 62 18 129/68 96 Room Air Intake and Output- Last 8 Hour 01/03/17 Cumulative From/Thru 07:00 01/02/17 18:36 - 01/03/17 04:45 Intake Total 50 ml 50 ml Output Total 400 ml 400 ml Balance -350 ml -350 ml Intake Oral 50 ml 50 ml Output Urine Total 400 ml 400 ml # Bowel Movements 0 0 General: Alert, Oriented X3, Cooperative Neck: Full Range of Motion Lungs: Normal Air Movement Heart: Exam Unremarkable Abdomen: Soft, Non-distended Result Diagram: 01/03/17 0615 01/03/17 0615 Assessment & Plan Impression 76-year-old female with acute cholecystitis and cholelithiasis with a 1.6 cm stone that was first noted by CT in July -We will proceed with laparoscopic cholecystectomy today -Nothing by mouth status -Continue Zosyn Problems: Attending Statement: I have seen and examined Joseluis. I agree with the assessment and plan as outlined above. Risks of surgery were discussed, and informed consent was obtained. Following surgery, she will most likely stay here tonight and go home tomorrow. Nader Monzon DO Jan 03, 2017 07:33 Alen Bunn MD Jan 03, 2017 08:23
[2017-01-03] MEDS: Fluticasone 100 mCg Inhaler INHALATION SCH ×2 (07:56→19:42)
[2017-01-03] MEDS ORDERED: Piperacillin-Tazo 3.375 Gm Inj 3.375 GM in Dextrose 5% Minibag Plus 50 ML IV SCH (08:30)
[2017-01-03] MEDS: Tolterodine ER 2 mg ER24 Capsule PO SCH (08:30)
[2017-01-03] MEDS ORDERED: BIOTIN 5000 MCG PO SCH (08:30)
[2017-01-03] MEDS: Estrogens Conjugated 0.3 mg Tablet PO SCH (08:30)
--- NOTE | 2017-01-03 10:52 | NUR ---
Transfer To OR via stretcher at 10:55. Zosyn infusing. Consent signed in chart. Report given to
--- NOTE | 2017-01-03 11:11 | PCM.HPANE ---
Patient Data Date of Service: Jan 03, 2017 Surgeon Admitting Provider:Anurag Earl MD Attending Provider:Zari Cormier MD Primary Care Physician:Mikal Suarez DO Other Provider: Reason for Visit Acute Cholecystitis Ht/WT & BMI Height (Feet): 5 Height (Inches): 6.00 Weight (Kilograms): 64.900 Body Mass Index 22.99 Allergies Coded Allergies: Iodinated Contrast- Oral and IV Dye (Verified Allergy, Severe, Hives, ) sulfamethoxazole (Verified Allergy, Severe, 02/01/15) trimethoprim (Verified Allergy, Severe, 02/01/15) cefazolin (Verified Adverse Reaction, Severe, 08/14/16) VOMITING codeine (Verified Adverse Reaction, Severe, 08/14/16) VOMITING metoclopramide (Verified Adverse Reaction, Severe, 08/14/16) "WIRED" morphine (Verified Adverse Reaction, Severe, 08/14/16) VOMITING oxycodone (Verified Adverse Reaction, Severe, 08/14/16) VOMITING Past Anesthesia History Anesthesia History: Denies:: Anesthesia Reactions, Difficult Intubation, Fam Anesthesia Reaction, Fam Malignant Hypertherm, Malignant Hyperthermia Diabetes History Hx Diabetes?: No MRSA MRSA: No Medications Blood Thinner: Aspirin Hypertension Medication: Yes Home Meds Incl Beta Prabha: Yes Date Beta Prabha Taken: Jan 03, 2017 Time Beta Prabha Taken: 08:00 Active Scripts Hydrocodone-Acetaminophen 5-325 mg 1 Each Tablet1 Tablet PO Q6 PRN For Mild Pain #10 TABLET Prov:Alen Bunn MD 08/14/16 Reported Medications Acetaminophen 500 Mg Jrijecu147 Mg PO 01/02/17 Biotin 5,000 Mcg Tab.rapdis5,000 Mcg PO 01/02/17 Oxybutynin Chloride ER 10 Mg Tab.er.2410 Mg PO DAILY Ref 0 01/02/17 Levothyroxine 100 Mcg Agfvmq442 Mcg PO DAILY For Thyroid Replacement Ref 0 01/02/17 Omeprazole 20 Mg Capsule.dr20 Mg PO DAILY Ref 0 01/02/17 Furosemide 20 Mg Tab20 Mg PO DAILY 30 Days Ref 0 01/02/17 Lisinopril 20 Mg Cauadw99 Mg PO DAILY 30 Days Ref 0 01/02/17 Estrogens, Conjugated (Premarin)0.3 Mg Tablet0.3 Mg PO DAILY 30 Days Ref 0 01/02/17 Metoprolol Tartrate 25 Mg Wracpb68.5 Mg PO BID 30 Days Ref 0 01/02/17 Amlodipine 5 Mg Tablet5 Mg PO DAILY Ref 0 01/02/17 Aspirin 81 Mg Jiinhq08 Mg PO DAILY Ref 0 01/02/17 Pravastatin 20 Mg Dmnerp35 Mg PO DAILY Ref 0 01/02/17 Metoprolol Tartrate 25 Mg Zoqnlx00.5 Mg PO BID 30 Days Ref 0 08/12/16 Amlodipine 5 Mg TabletUnknown Dose PO BID PRN For HYPERtension Ref 0 02/01/15 Cholecalciferol (Vitamin D3) (Vitamin D)1,000 Unit Capsule1,000 Unit PO DAILY # 1 BOTTLE Ref 0 12/29/14 Albuterol Sulfate (Ventolin HFA Inhaler)200 Puff/18 Gm Inhaler2 Puff INH Q4 PRN For Wheezing #1 INHALER Ref 0 12/29/14 Beclomethasone Dipropionate (Qvar)8.7 Gm Aer.w.adap2 Puffs IH BID 12/29/14 Pravastatin 20 Mg Nqqvaj29 Mg PO DAILY Ref 0 12/29/14 Oxybutynin Chloride ER 10 Mg Tab.er.2410 Mg PO DAILY Ref 0 12/29/14 Omeprazole 20 Mg Capsule.dr20 Mg PO DAILY Ref 0 12/29/14 Lisinopril 20 Mg Scppbh08 Mg PO DAILY 30 Days Ref 0 12/29/14 Levothyroxine 100 Mcg Diuhpy333 Mcg PO DAILY For Thyroid Replacement Ref 0 12/29/14 Furosemide (Lasix)20 Mg Vsjgau16 Mg PO DAILY 30 Days Ref 0 12/29/14 Diazepam 2 Mg Tablet2 Mg PO TID PRN For Anxiety Ref 0 12/29/14 Biotin (Bandar Biotin)10,000 Mcg Capsule5,000 Mcg PO DAILY 12/29/14 Aspirin 81 Mg Hxuktu72 Mg PO DAILY Ref 0 12/29/14 Acetaminophen 500 Mg Tablet1,000 Mg PO Q6H PRN For Fever 12/29/14 History History of ENT Problems?: No HEENT History: Positive for:: Cataracts (Bilateral cataract removal) Sinus Problem (Sometimes) Denies:: Difficult Intubation Dysphagia Hearing Problem Denture Type: None Teeth Condition: Within Normal Limits Hx of Heart Problems?: Yes Cardiovascular History: Positive for:: Cardiac Surgery (pacemaker) Edema (Sometimes) Hypertension Irregular Heartbeat (Current 2nd degree AVB) Pacemaker Denies:: AICD Atrial Fibrillation Chest Pain Congestive Heart Failure Heart Murmur Thrombophlebitis Valvular Heart Disease Hx of Respiratory Problem?: Yes Respiratory History: Positive for:: Asthma Pneumonia (remote hx of ) Denies:: COPD Chest Surgery Cough Dyspnea Emphysema Hemoptysis Oxygen Administration Tuberculosis Use of C-PAP Machine Hx Neurologic Problems?: No Neurological History: Denies:: Alzheimer's Disease CVA Dementia Dizziness Headaches Parkinson's Disease Seizures Hx of GI Problems?: Yes Gastrointestinal History: Positive for:: Gall Bladder Disease Hx of Problems?: Yes Genitourinary History: Positive for:: Urinary Tract Infection (Takes prophylactic Cipro) Denies:: HX of Hemodialysis Kidney Stones HX of Peritoneal Dialysis: No Female Hx: Positive for:: Endometriosis Problems with Breasts? (hx right breast, recurrence current admission problem) Denies:: Currently Pelvic Inflammatory Skin History: Denies:: History Skin Disorders? Pressure Ulcers Hx Musculoskeletal Problems?: No Musculoskeletal History: Positive for:: Back Injury (Low to mid back when standing for long time) Joint Replacement (Partial right knee) Denies:: Musculoskeletal Trauma Systemic Lupus Hx of Psycho/Social Problems?: No Psycho Social History: Denies:: Anxiety Bipolar Disorder Hx Depression Suicide Attempt Hx Surgeries?: Yes (BONE MARROW TRANSPLANT, 2 BLADDER SURGERIES) Hx Any Other Health Problems?: Yes Other History: Positive for:: Cancer (leukemia- hx bone marrow, radiation ) Hospitalization Thyroid Disease (Hypothyrodism) Denies:: Endocrine Disease History Blood Transfusions: Positive for:: Blood Transfusions Denies:: Blood Transfuse Reaction Hx Diabetes: No Hx Alcohol Use: NoHx Substance Use: No Smoking Status: Former Smoker Have You Smoked inLast 12 mo: No Stop/Bang Treated for Sleep Apnea?: No Do You Have a CPAP Machine?: No Risk Assessment Category Category 1A: Patient has history of documented sleep apnea, and HAS NOT received any narcotic, sedative or anesthesia administration during this stay. Category 1B: Patient has history of documented sleep apnea, and HAS received any narcotic , sedative or anesthesia administration during this stay Category 2: Patient has SUSPECTED Obstructive Sleep Apnea, and HAS received any narcotic , sedative or anesthesia administration during this stay. Category 3: Patient has SUSPECTED Obstructive Sleep Apnea and HAS NOT received narcotic, sedative or anesthesia administration during this stay. Category 4: Outpatient in Procedural Areas with known sleep apnea or who screen positive for High Risk via the STOP/BANG questionnaire. Exam Exam Vital Signs Vital Signs Date Time Temp Pulse Resp B/P Pulse Ox O2 Delivery O2 Flow Rate FiO2 01/03/17 10:01 36.6 69 20 131/72 96 Room Air 01/03/17 08:45 70 01/03/17 05:08 77 01/03/17 04:45 36.5 62 18 129/68 96 Room Air General Appearance: Alert, Oriented X3, Cooperative HEENT/AIRWAY: MP 3, Neck Movement (Ok), Mouth Opening (Small mouth opening, short TM distance) Lungs: Normal Air Movement Heart: Exam Unremarkable, Regular Rate/Rhythm, Normal S1, Normal S2 Meds/Labs/Diagnostics Admission Meds Current Medications Piperacillin Sod/ Tazobactam Sod 3.375 gm/Dextrose/ Water 50 ml @ 12.5 mls/hr Q12 IV Last administered on 01/03/17 07:57; Start 01/03/17 at 08:30 Piperacillin Sod/ Tazobactam Sod 3.375 gm/Dextrose/ Water 50 ml @ 100 mls/hr ONCE ONCE IV Last administered on 01/02/17 20:19; Start 01/02/17 at 18:35; Stop 01/02/17 at 19:04; Status DC Sodium Chloride 1,000 ml @ 0 mls/hr Q0M ONCE IV Last administered on 20:19; Start 01/02/17 at 20:10; Stop 01/02/17 at 20:20; Status DC Sodium Chloride (Normal Saline) 1,000 ml @ 100 mls/hr Q10H IV Last administered on 01/03/17 00:22; Start 01/02/17 at 20:10 Fluticasone Propionate (Flovent 100 mCg Diskus) 1 puff BID INHALATION Last administered on 01/03/17 07:56; Start 01/03/17 at 08:30 Levothyroxine Sodium (Synthroid) 100 mcg DAILY PO Last administered on 07:58; Start 01/03/17 at 08:30 Metoprolol Tartrate (Lopressor) 12.5 mg BID PO Last administered on 01/03/17 07:58; Start 01/03/17 at 08:30 Pantoprazole (Protonix) 40 mg 0630 PO Last administered on 01/03/17t 06:41; Start 01/03/17 at 06:30 Labs Test 01/02/17 18:45 01/03/17 06:15 Procalcitonin 0.26ng/mL (0.00-0.08) White Blood Count 8.6th/mm3 (3.8-10.1) Red Blood Count 3.67mil/mm3 (3.90-5.20) Hemoglobin 11.4g/dL (12.0-15.6) Hematocrit 33.8% (35.0-46.0) Mean Corpuscular Volume 92.1fL (81-100) Mean Corpuscular Hemoglobin 31.1pg (27.0-35.0) Mean Corpuscular Hemoglobin Concent 33.7% (32.0-37.0) Red Cell Distribution Width 13.4% (12.3-15.4) Platelet Count 174bil/L (150-400) Neutrophils (%) (Auto) 64.2% (40-74) Lymphocytes (%) (Auto) 18.0% (14-46) Monocytes (%) (Auto) 10.4% (4-12) Eosinophils (%) (Auto) 6.7% (0-5) Basophils (%) (Auto) 0.5% (0-3) Sodium Level 140mEq/L (134-144) Potassium Level 4.1mEq/L (3.5-5.2) Chloride Level 106mEq/L (97-108) Carbon Dioxide Level 20mmol/L (18-29) Blood Urea Nitrogen 36mg/dL (8-27) Creatinine 1.64mg/dL (0.57-1.00) Estimat Glomerular Filtration Rate 44mL/min (>59) Glucose Level 111mg/dL (60-99) Calcium Level 8.5mg/dL (8.5-10.1) Magnesium Level 1.6mg/dL (1.6-2.6) Total Bilirubin 0.4mg/dL (0.0-1.2) Aspartate Amino Transf (AST/SGOT) 9U/L (0-50) Alanine Aminotransferase (ALT/SGPT) 8U/L (0-32) Alkaline Phosphatase 46U/L (25-165) Total Protein 5.6g/dL (6.4-8.4) Albumin 3.6g/dL (3.4-5.0) Lipase 12U/L (13-60) Plan Impression Patient chart reviewed, patient interviewed and anesthestic plan with risks, benefits, and alternatives discussed, and informed consent obtained. NPO per Anesth. Guidelines: Yes ASA Physical Status: ASA3 Severe Disease Anesthetic Support Modalities: Eure Scope Anesthetic Plan: GA Bene/Risks/Altern/Consents: Yes HP Complete Prior to Induction: Yes Roberto Haley MD Jan 03, 2017 10:52
[2017-01-03] MEDS ORDERED: Bupivacaine-MPF 0.5% 30 mL Inj INFILTRATE ONE (11:25)
[2017-01-03] MEDS ORDERED: Lactated Ringer's 1,000 ML IV ONE (11:25)
--- NOTE | 2017-01-03 12:28 | PCM.PNMED ---
Subjective Date of Service Jan 03, 2017 Subjective pt was mildly symptomatic, c/o diffuse abd pain, more on RUQ kept in NPO, awaits for surgery this AM denied n/v Exam Vital Signs Vital Sign - Last Date Time Temp Pulse Resp B/P Pulse Ox O2 Delivery O2 Flow Rate FiO2 01/03/17 10:01 36.6 69 20 131/72 96 Room Air Intake and Output 01/02/17 01/02/17 01/03/17 Cumulative From/Thru 15:00 23:00 07:00 01/02/17 18:36 - 01/03/17 04:45 Intake Total 50 ml 50 ml Output Total 400 ml 400 ml Balance -350 ml -350 ml Intake Oral 50 ml 50 ml Output Urine Total 400 ml 400 ml # Bowel Movements 0 0 IVs and Medications Medications Reviewed: Medications were reviewed in detail Lab and Diagnostics Result Diagram: 01/03/1715 01/03/17 0615 X-Rays, CTs and MRIs Abdominal ultrasound performed 01/02/2017 IMPRESSION: Acute cholecystitis appears present given the abnormal gallbladder wall thickening up to almost 8 mm, and pronounced tenderness during sonographic palpation of the gallbladder. Stones are present within the gallbladder lumen, and a calculus appears impacted at the gallbladder neck as noted above. Dictated by: Constantine Valerio M.D. 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 acute, active Acute cholecystitis with cholelithiasis, present on admission, active, Positive Wills's, 8 mm gallbladder wall, 1.6 cm gallstone impacted seen on ultrasound. Pro-calcitonin 0.26. pt was startedZosyn every 12 hours IV awaits surgery planned today. IV fluids see below resume diet after surgery dvt ppx, pain control per surgery team Acute on chronic kidney injury, present on admission, active, Creatinine is nearly double what it was 2 months ago, patient says she has not been eating or drinking much the past few days, most likely prerenal in nature given the BUN to creatinine ratio. -renal function greatly improved with IVF -s/p IV bolus 1 L 100 mL per hour normal saline, continue one more day and stop. Acute diarrhea, present on admission, active awaits Stool C. difficile toxin, ova and parasites, TSH Continue to monitor, IV fluids. Chronic stable problems Hyperlipidemia continue pravastatin Hypertension continue amlodipine, metoprolol, lisinopril Hypothyroidism continue levothyroxine Asthma continue Ventolin and Qvar when necessary for shortness of breath. dispo: likely 1-2days if no post-op Cx observed CODE STATUS: Full code. Patient states she has a living will saying resuscitation okay to be performed, does not want to be placed on life support. GI prophylaxis not indicated, nothing by mouth after midnight Pain management: Numerous allergies including codeine, oxycodone. Tylenol as needed. DVT prophylaxis SCDs VTE Mechanical Devices: Intermittant Pneumatic CD Time spent 35min Zari Cormier MD Jan 03, 2017 12:28
--- NOTE | 2017-01-03 12:48 | PCM.SURGOP ---
Surgical Operative Report Date of Service: Jan 03, 2017 Pre Operative Diagnosis Acute calculus cholecystitis Post Operative Diagnosis Same Procedure: Laparoscopic cholecystectomy Surgeon and Chaperone: Surgeon: Alen Bunn MD Assistants: Constantine Cai PA-C Indication for Procedure 76-year-old woman who presented to the hospital with 4 days of abdominal pain and nausea. She had a mildly elevated white blood cell count at 11.9. Liver function tests were normal. She was diffusely tender. She had an ultrasound which demonstrated a large gallstone impacted in the neck of the gallbladder with a thickened gallbladder wall. After discussion of risks and benefits, she agreed to proceed with laparoscopic cholecystectomy. Because of her severe oral contrast allergy, plans were only to do a cholangiogram if absolutely necessary to define her anatomy. Findings: The gallbladder was acutely inflamed with hydrops. The critical view was obtained with a normal appearing cystic duct. Procedure Details After smooth induction of general endotracheal anesthesia, the patient was placed in the supine position with the right arm tucked. A procedural pause was performed according to the SCOAP checklist, and all were found to be in agreement. A curvilinear infraumbilical incision was made. Dissection was carried down with electrocautery until the midline fascia was incised vertically, and the peritoneal cavity entered without difficulty. Pneumoperitoneum was established. Inspection revealed some inflammatory adhesions to the fundus of the gallbladder and severe inflammation with distention of the gallbladder. 3 additional ports were placed under direct visualization. One was placed in the midline epigastrium, and 2 in the right subcostal region. Adhesions were taken down from the gallbladder fundus with electrocautery. The fundus of the gallbladder was then grasped and retracted cephalad, and during the retraction, the gallbladder was perforated and decompressed hydrops fluid. The infundibulum of the gallbladder was exposed and grasped. The peritoneum was incised. The cystic artery was doubly clipped and divided. The critical view was obtained using the infundibular technique. A clip was placed on the gallbladder side of the cystic duct, 2 clips were placed on the common bile duct side, and the duct was divided with scissors. The remainder of the gallbladder was dissected out of the gallbladder fossa with electrocautery. The gallbladder was placed into an Endo Catch bag and removed from the umbilical port site. It was passed off the field and sent for permanent pathology. The gallbladder fossa was inspected and irrigated. Hemostasis was adequate, and there was no bile leak. The ports were removed under direct visualization and pneumoperitoneum was released. The fascia of the umbilical port site was closed using an 0 Vicryl suture in a [id number]. The skin incisions were closed using running 4-0 Monocryl subcuticular stitches. Steri- Strips and sterile dressings were applied. At the end of the case all needle and sponge counts were correct 2. The patient was awakened from anesthesia without difficulty, and taken to the recovery room in satisfactory condition, having tolerated the procedure well. Complications There were no periprocedural complications identified. Surgical Specimen Removed: Yes Specimen sent to Pathology: Yes Surgical Specimen description: Gallbladder Anesthetic Plan: GA Grafts, Implants: None Output, Estimated Blood Loss: 50 Blood Administration during bansal: No Drains: None Catheters: None copies to: Mikal Suarez Joshua D MD Jan 03, 2017 12:44
[2017-01-03] MEDS ORDERED: Lactated Ringer's 1,000 ML IV SCH (12:59)
[2017-01-03] MEDS ORDERED: Lactated Ringer's 500 ML IV PRN (12:59)
[2017-01-03] MEDS ORDERED: Albuterol 2.5 mg/3 mL Inhalation Solution NEB PRN (13:00)
[2017-01-03] MEDS ORDERED: HYDROmorphone 1 mg/mL Inj IVPUSH PRN (13:00)
[2017-01-03] MEDS ORDERED: Ondansetron 2 mg/mL 2 mL Inj IVPUSH PRN (13:00)
[2017-01-03] MEDS ORDERED: Phenylephrine 10,000 mCg/mL Inj IVPUSH PRN (13:00)
[2017-01-03] MEDS ORDERED: fentaNYL-PF 50 mCg/mL 2 mL Inj IVPUSH PRN (13:00)
[2017-01-03] MEDS ORDERED: EPHEDrine Sulfate 50 mg/mL Inj IVPUSH PRN (13:00)
[2017-01-03] MEDS ORDERED: 0.9% Sodium Chloride 250 ML ONE (14:25)
--- NOTE | 2017-01-03 14:51 | NUR ---
Post op Returned from PACU via stretcher at 13:55. Report received from Jayleen. Pt alert and oriented. RA. Lap sites CDI. VSS. Denies pain and nausea. Transferred self to bed and immediately up to BSC with 1 person assist and voided. Steady on feet. Tolerates water, talking about steak for dinner. Daughter in room.
--- NOTE | 2017-01-03 17:10 | NUR ---
Social Work: Initial Assessment/Multi-Disciplinary Rounds D: EMR reviewed. Please see Initial Assessment linked to this note for more information. Pt is a 76 y/o female admitted [place] for acute cholecystitis per H&P. Pt does not have a readmit risk score assigned. Pt's insurance is Medicare and [facility] [employer] Supplemental. PCP is Mikal Kennedy DO. KELLEY met with pt at bedside to conduct initial assessment. Pt was alert and oriented x3. SW explained role and wrote phone number on white board. SW provided "Your Discharge Planning Checklist" and encouraged pt to contact SW for any discharge planning questions. Pt discussed in multidisciplinary rounds. Per MD, pt anticipate to go to OR today and discharge in 2-3 days pending surgery. No SW needs identified, no MD orders received. SW will continue to follow for recommendations after surgery. Pt lives at home alone at the [facility]. Pt is independent with all ADLs. Pt owns and uses a FWW for ambulation. Pt also has [employer] at home and [employer] in her car (GPS). SW discussed discharge plan and asked if pt had any concerns regarding discharge. Pt states she is independent and has help from her daughters and friends if needed. Pt stated she will drive herself home via POV when medically stable for discharge. SW encouraged pt to contact SW via number on white board for any discharge planning questions. SW will continue to follow. Pt reported that she has completed DPOA/advanced directive ppw and SW encouraged pt to provide a copy to the hospital. A: Pt who is independent at baseline and has capacity for self-care. No SW needs identified at this time. P: Pt anticipated to discharge home via POV. No discharge needs identified. No MD orders received. SW will follow pt for possible needs after surgery today. SW will continue to follow and consult with MD and medical team. OSCAR Anthony Addendum: 01/03/17 at 1717 by GLENN CONSTANTINO Amended: Links added.
[2017-01-04 01:52] VITALS: BP 110/57; PULSE 64; RESP 16; O2SAT 96
--- NOTE | 2017-01-04 06:02 | NUR ---
Activity Patient tolerating transfers to BSC well. Denies pain and or discomfort at this time. VSS Bed in low position, call light within reach, intentional rounding. Tele: AV paced HR 60's with PVC's.
[2017-01-04 06:04] VITALS: PULSE 64
[2017-01-04 06:42] VITALS: BP 134/66; PULSE 69; RESP 16; O2SAT 97
[2017-01-04 08:00] VITALS: PULSE 72
[2017-01-04] MEDS ORDERED: POLY17PO6 PO ×2 (08:02→08:07)
[2017-01-04] MEDS ORDERED: ACET-171 PO (08:02)
[2017-01-04] MEDS ORDERED: OXYC5TAB72 PO (08:02)
[2017-01-04 08:06] VITALS: BP 130/60; PULSE 56; RESP 16; O2SAT 100
[2017-01-04] MEDS ORDERED: Acetaminophen PO (08:07)
[2017-01-04 08:17] LABS: BASOPHILS % (AUTO) 0.1 % (0-3); EOSINOPHILS % (AUTO) 0 % (0-5); MONOCYTES % (AUTO) 6.8 % (4-12); Mean Corpuscular Hemoglobin 31.1 pg (27.0-35.0); Mean Corpuscular Volume 92.7 fL (81-100); NEUTROPHILS % (AUTO) 79.7 % (40-74); Platelet Count 189 bil/L (150-400)
--- NOTE | 2017-01-04 08:23 | PCM.DISURG ---
Surgical Discharge Instruction Date of Service Jan 04, 2017 Dates of Hospitalization Date of Hospital Admission Jan 02, 2017 at 18:09 Providers Admitting Physician: Anurag Earl MD Primary Care Physician: Mikal Suarez DO Attending Physician: Zari Cormier MD Discharge Diagnosis Post Operative diagnosis Same Diet Discharge Diet: No restrictions Activity Discharge Activity-General: Be up and about, Activity as pain allows, No lifting >15 pounds for 2 weeks, No driving while taking narcotic Dressing and Incisional Care Dressing Care: Allow Steri Stripes to fall off, Remove outer dressing after 24 hrs Hygiene: May shower after (24 hours), DO NOT soak incision under water, NO bathtub, hot tub or whirlpool Follow Up Plan Follow Up Plan Follow up with the general surgery clinic in 2-4 weeks. Call at any time with questions or concerns. Call your provider for: Fever, Chills, Increasing abdominal pain, Nausea, Vomiting, Wound redness, Increasing wound pain, Discharge @ incision, pus discharge Dalton Stone MD Jan 04, 2017 08:23
[2017-01-04] MEDS: Fluticasone 100 mCg Inhaler INHALATION SCH (08:30)
[2017-01-04] MEDS: Estrogens Conjugated 0.3 mg Tablet PO SCH (08:30)
--- NOTE | 2017-01-04 08:41 | PCM.DC.SUR ---
Discharge Summary Date of Service: Jan 04, 2017 Date of Hospital Admission: Jan 02, 2017 at 18:09 Date of Discharge: January 04, 2017 Operation Laparoscopic cholecystectomy. Brief History and Physical: 76-year-old woman with hypertension, breast cancer status post bilateral mastectomy, chronic renal disease, CML, sick sinus syndrome status post pacemaker placement, was a direct admit to the hospital after presenting with evolving symptoms that eventually maximize in the right upper quadrant. She reports being in [place] last week and eating seafood last Friday, 6 days ago which resulted in her having nausea vomiting diarrhea, she was discharged from the emergency department in [place]. Friday she began to develop which he describes as a pressure in her right chest that descended into her abdomen and eventually wrapped around to her right back. She has not had much to eat but still gets the sensation that she has to defecate. She was seen at the residency clinic today for 7 out of 10 right upper abdominal pain, she was sent for ultrasound and labs which showed an 8 mm thick gallbladder wall and a 1.6 impacted stone in the gallbladder neck. She was started on Zosyn, and IV fluids. She denies any fever, chills, lightheadedness or dizziness, no current chest pain or palpitations, no numbness weakness tingling in arms hands feet or legs, no headaches or abrupt changes in vision. Vitals are stable on admission, white blood cells 11.9, BUN 46 creatinine 2.81 ( 1.16 two months ago), glucose 100, procalcitonin 0.26, liver enzymes are normal , magnesium 1.7. She is admitted for acute cholecystitis with cholelithiasis. Hospital Course: The patient was taken to the operating room for an uncomplicated laparoscopic cholecystectomy. Following this, she recovered from general anesthesia in the PACU and then returned to her room on the general surgery floor for ongoing intensive nursing care and observation. Over the course of the ensuing hospital stay her diet was systematically advanced with excellent toleration, her pain was transitioned from an IV narcotic regimen to PO pain control, and she resumed normal spontaneous bowel and bladder function. She remained hemodynamically stable. Exam on the morning of POD#1 revealed her to be in no acute distress, with a benign abdominal exam, and laparoscopic port sites covered with clean bandages. She was deemed stable for discharge having met or exceeded all criteria for a safe discharge to home. She expressed her understanding of return precautions and will follow up in the general surgery clinic in 2-4 weeks. ([Acetaminophen]) 325 MG TABLET 650 MG PO Q6H Albuterol Sulfate (Ventolin HFA Inhaler) 200 Puff/18 Gm Inhaler 2 PUFF INH Q4 PRN PRN For Wheezing (Reported) Amlodipine (Amlodipine) 5 Mg Tablet Unknown Dose PO BID PRN PRN For HYPERtension (Reported) Amlodipine (Amlodipine) 5 Mg Tablet 5 MG PO DAILY (Reported) Aspirin (Aspirin) 81 Mg Tablet 81 MG PO DAILY (Reported) Aspirin (Aspirin) 81 Mg Tablet 81 MG PO DAILY (Reported) Beclomethasone Dipropionate (Qvar) 8.7 Gm Aer.w.adap 2 PUFFS IH BID (Reported) Biotin (Bandar Biotin) 10,000 Mcg Capsule 5,000 MCG PO DAILY (Reported) Biotin (Biotin) 5,000 Mcg Tab.rapdis 5,000 MCG PO (Reported) Cholecalciferol (Vitamin D3) (Vitamin D) 1,000 Unit Capsule 1,000 UNIT PO DAILY (Reported) Diazepam (Diazepam) 2 Mg Tablet 2 MG PO TID PRN PRN For Anxiety (Reported) Estrogens, Conjugated (Premarin) 0.3 Mg Tablet 0.3 MG PO DAILY (Reported) Furosemide (Lasix) 20 Mg Tablet 10 MG PO DAILY (Reported) Furosemide (Furosemide) 20 Mg Tab 20 MG PO DAILY (Reported) Levothyroxine (Levothyroxine) 100 Mcg Tablet 100 MCG PO DAILY (Reported) Levothyroxine (Levothyroxine) 100 Mcg Tablet 100 MCG PO DAILY (Reported) Lisinopril (Lisinopril) 20 Mg Tablet 20 MG PO DAILY (Reported) Lisinopril (Lisinopril) 20 Mg Tablet 20 MG PO DAILY (Reported) Metoprolol Tartrate (Metoprolol Tartrate) 25 Mg Tablet 12.5 MG PO BID (Reported ) Metoprolol Tartrate (Metoprolol Tartrate) 25 Mg Tablet 12.5 MG PO BID (Reported ) Omeprazole (Omeprazole) 20 Mg Capsule.dr 20 MG PO DAILY (Reported) Omeprazole (Omeprazole) 20 Mg Capsule.dr 20 MG PO DAILY (Reported) Oxybutynin Chloride ER (Oxybutynin Chloride ER) 10 Mg Tab.er.24 10 MG PO DAILY ( Reported) Oxybutynin Chloride ER (Oxybutynin Chloride ER) 10 Mg Tab.er.24 10 MG PO DAILY ( Reported) Polyethylene Glycol 3350 (Miralax) 17 Gm Powd.pack 17 GM PO BID Take as needed to promote smooth and soft stools while using narcotic pain meds. Pravastatin (Pravastatin) 20 Mg Tablet 20 MG PO DAILY (Reported) Pravastatin (Pravastatin) 20 Mg Tablet 20 MG PO DAILY (Reported) oxyCODONE (oxyCODONE) 5 Mg Tablet 5 MG PO Q6H PRN PRN For Pain Dalton Stone MD Jan 04, 2017 08:41
[2017-01-04] MEDS: Pantoprazole 40 mg ER24 Tablet PO SCH (08:44)
[2017-01-04] MEDS: Tolterodine ER 2 mg ER24 Capsule PO SCH (08:52)
[2017-01-04 09:00] LABS: Magnesium 1.6 mg/dL (1.6-2.6); Phosphorus 2.1 mg/dL (2.5-4.9)
--- NOTE | 2017-01-04 10:16 | NUR ---
Social Work: Readiness for Discharge/Multidisciplinary Rounds D: EMR reviewed. Pt s on day 2 of hospitalization. Pt discussed in multidisciplinary rounds. Per MD, pt is medically stable for discharge home today. No SW needs identified, no MD orders received. Per MD, no concerns for pt's discharge or capacity for self-care at home. SW will continue to follow until time of discharge. A: Pt who is independent at baseline and has capacity for self-care. No SW needs identified at this time. P: Pt to discharge home today via POV. No discharge needs identified. No MD orders received. SW will continue to follow until time of discharge. OSCAR Anthony
[2017-01-04 10:21] VITALS: PULSE 62; RESP 16; O2SAT 97
[2017-01-04] MEDS ORDERED: fentaNYL-PF 50 mCg/mL 2 mL Inj ONE (11:24)
[2017-01-04] MEDS ORDERED: Glycopyrrolate 0.2 MG/ML 1mL Inj ONE (11:24)
[2017-01-04] MEDS ORDERED: Dexamethasone 4 mg/mL Inj ONE (11:24)
[2017-01-04] MEDS ORDERED: Ondansetron 2 mg/mL 2 mL Inj ONE (11:24)
[2017-01-04] MEDS ORDERED: Rocuronium 10 mg/mL 5 mL Inj ONE (11:24)
[2017-01-04] MEDS ORDERED: Phenylephrine/NS-PF 100 mCg/mL 5 mL Syringe IVPUSH ONE (11:24)
[2017-01-04] MEDS ORDERED: Neostigmine 1 mg/mL 5 mL Inj ONE (11:24)
[2017-01-04] MEDS ORDERED: Propofol 10 mg/mL 20 mL Inj ONE (11:24)
--- NOTE | 2017-01-04 11:49 | NUR ---
Social Work: Discharge D: EMR reviewed. Pt s on day 2 of hospitalization. Pt discussed in multidisciplinary rounds. Per MD, pt is medically stable for discharge home today. No SW needs identified, no MD orders received. Per MD, no concerns for pt's discharge or capacity for self-care at home. SW will continue to follow until time of discharge. A: Pt who is independent at baseline and has capacity for self-care. No SW needs identified at this time. P: Pt discharged home today with daughter via POV. No discharge needs identified. No MD orders received. OSCAR Anthony
--- NOTE | 2017-01-04 12:21 | NUR ---
Discharge Pt. received discharge instructions and hard prescription for tylenol. Pt. had a prescription for oxycodone; pt. allergic to this medication, so pt. did not take script. Pt. also declined prescription for miralax; will not be on narcotics, not concerned about bowel movement. Pt. given care notes on choleycystitis. Pt. verbalized understanding to instructions. Daughter called to transport pt. Pt. dischaged at approx. 11:30.
--- NOTE | 2017-01-07 13:45 | PATH ---
SURGICAL PATHOLOGY Attending Physician:Dalton Adorno CASE STATUS: Signed Out PATIENT NAME: MARK OLIVARES PID: [id number] : 1940 DATE COLLECTED:01/03/2017 20:01 SPECIMEN: Gallbladder CLINICAL HISTORY: ACUTE CHOLECYSTITIS 1). GALLBLADDER FINAL DIAGNOSIS: Gallbladder, Cholecystectomy: - Acute and chronic cholecystitis. - Cholelithiasis. - No evidence of malignancy. ICD10: K81. GROSS DESCRIPTION: The specimen is received in formalin, labeled with the patient's name, sublabeled as gallbladder, and consists of a ruptured gallbladder (length-8.5 cm, diameter-3.8 cm) with a partially obstructed cystic duct. No lymph nodes are identified. A dark brown ovoid solid firm bosselated calculus (2.7 x 2.1 x 0.8 cm) with a dark lenny crystalline cut surface is lodged partially blocking the cystic duck and ulcerates through the wall. The serosa and mucosa are red-brown smooth and flat. The wall is up to 0.1 cm thick. The remaining lumen contents consist of dark maroon solid friable material. No nodules, masses or lesions are identified. Section code: (A) gallbladder, cystic duct resection margin, 2 serial sections from the body; (B) longitudinal section from the fundus. 01/04/17 ICD-9 CODES: CPT CODES: 1: 09311 Electronically Signed Out Lito Kenney MD [facility] [address], [place] [address] Technical component performed at [facility], [address] [place] [address] Ave[address], [place], [address]
== END 2017-01-04 11:25 | disposition home or self-care (01) | DRG 418 ==
LOC: OSC 18:09
PROVIDERS: ADMIT Hospitalist; ATTEND Hospitalist
PROC: 0FT44ZZ Resection of Gallbladder, Percutaneous Endoscopic Approach (ICD-10-PCS; principal; 2017-01-03 11:00)
DX: K80.00 Calculus of gallbladder with acute cholecystitis without obstruction (principal); N17.9 Acute kidney failure, unspecified; Z94.81 Bone marrow transplant status; Z85.3 Personal history of malignant neoplasm of breast; Z95.0 Presence of cardiac pacemaker; J45.909 Unspecified asthma, uncomplicated; E78.5 Hyperlipidemia, unspecified; I12.9 Hypertensive chronic kidney disease with stage 1 through stage 4 chronic kidney disease, or unspecified chronic kidney disease; N18.9 Chronic kidney disease, unspecified; E03.9 Hypothyroidism, unspecified; Z85.6 Personal history of leukemia